=== PATIENT | male | born 1955 | race American Indian/Alaskan Native ===

== ENCOUNTER 2016-10-15 07:42 | Emergency (ER) | payer OTHER ==
[2016-10-15 09:06] LABS: Basophils % (Auto) 0.4 % (0.0-1.8); Hematocrit 45.4 % (35.5-45.6); Hemoglobin 14.2 gm/dl (11.8-15.2); Mean Corpuscular HGB Conc 31 % (32-34); Mean Corpuscular Hemoglobin 27 pg (28-32); Mean Corpuscular Volume 85 fl (84-94); Platelet Count 146 K/mm3 (140-440); Red Blood Count 5.37 M/mm3 (3.65-5.03); Red Cell Distribution Width 15.9 % (13.2-15.2); White Blood Count 7.5 K/mm3 (4.5-11.0)
[2016-10-15 09:27] LABS: Alanine Aminotransferase 15 units/L (7-56); Albumin/Globulin Ratio 1.3 %; Alkaline Phosphatase 60 units/L (35-129); Anion Gap 14 mmol/L; BUN/Creatinine Ratio 19.09; Bilirubin,Total 0.5 mg/dL (0.1-1.2); Blood Urea Nitrogen 21 mg/dL (9-20); Calcium 9.1 mg/dL (8.4-10.2); Carbon Dioxide 27 mmol/L (22-30); Chloride 101.2 mmol/L (98-107); Glucose 119 mg/dL (75-100); Lipase 28 units/L (13-60); Sodium 137 mmol/L (137-145); Total Protein 7.2 g/dL (6.3-8.2)
[2016-10-15 09:57] LABS: Bilirubin,Urine NEG (Negative); Blood,Urine MOD (Negative); Ketones,Urine NEG (Negative); Leukocyte Esterase,Urine NEG (Negative); Mucus,Urine 2+ /HPF; Nitrite,Urine NEG (Negative); Protein,Urine <15 mg/dL mg/dL (Negative); Urobilinogen,Urine < 2.0 mg/dL (<2.0)
[2016-10-15] MEDS ORDERED: MORPHINE IM ONE (10:15)
[2016-10-15] MEDS ORDERED: ZOFRAN IM ONE (10:15)
[2016-10-15] MEDS ORDERED: TORADOL IM ONE (10:16)
--- NOTE | 2016-10-15 10:21 | Emergency Department Report ---
HPI - General Chief Complaint: Abdominal Pain Time Seen by Provider: 10/15/16 10:08 - [facility] HPI: Room 5 The patient is a 60-year-old male presenting with a chief complaint of left- sided abdominal pain. The patient states that 04:00 this morning he had onset of sharp left-sided abdominal pain. Patient denies nausea vomiting or diarrhea. Patient denies dysuria or hematuria. Patient states he had difficulty urinating. Patient states she's had a similar episode same pain in the past was diagnosed with kidney stones. Patient also admits to right lower extremity pain for the past 2 weeks. Patient denies any history of trauma Location: Left abdomen, right lower extremity Duration: [see above] Quality: Pain Severity: 01/11 Modifying factors: [see above] Context: [see above] Mode of transportation: [not driving] ED Past Medical Hx - Past Medical History Previous Medical History?: Yes Hx Hypertension: Yes (x15 years) Hx Headaches / Migraines: Yes Hx Kidney Stones: Yes Additional medical history: hepititis - Surgical History Past Surgical History?: Yes Additional Surgical History: Umbilical Hernia surgery - Family History Family history: no significant - Social History Smoking Status: Never Smoker - Medications Home Medications: Home Medications Medication Instructions Recorded Confirmed Last Taken Type Ibuprofen [Motrin 800 MG tab] 800 mg PO Q8HR PRN #20 tablet 10/15/16 Unknown Rx Promethazine [Phenergan TAB] 25 mg PO Q6HR PRN #10 tab 10/15/16 Unknown Rx oxyCODONE /ACETAMINOPHEN [Percocet 1 - 2 tab PO Q6HR PRN #14 tablet 10/15/16 Unknown Rx 5/325] ED Review of Systems ROS: Stated complaint: PAIN ON LEFT SIDE/ABD Other details as noted in HPI Comment: All other systems reviewed and negative Constitutional: denies: chills, fever Eyes: denies: eye pain, eye discharge, vision change ENT: denies: ear pain, throat pain Respiratory: denies: cough, shortness of breath, wheezing Cardiovascular: denies: chest pain, palpitations Endocrine: no symptoms reported Gastrointestinal: abdominal pain. denies: nausea, vomiting, diarrhea Genitourinary: denies: urgency, dysuria, hematuria Musculoskeletal: myalgia. denies: back pain, joint swelling, arthralgia Skin: denies: rash, lesions Neurological: denies: headache, weakness, paresthesias Psychiatric: denies: anxiety, depression Hematological/Lymphatic: denies: easy bleeding, easy bruising Physical Exam - Physical Exam Vital Signs: Vital Signs 10/15/16 10/15/16 08:03 08:36 Temperature 98.1 F 98.1 F Pulse Rate 69 69 Respiratory 18 18 Rate Blood Pressure 157/102 Blood Pressure 157/102 [Right] O2 Sat by Pulse 100 100 Oximetry Physical Exam: GENERAL: The patient is well-developed well-nourished male lying on stretcher not appearing to be in acute distress. [] HEENT: Normocephalic. Atraumatic. Extraocular motions are intact. Patient has moist mucous membranes. NECK: Supple. Trachea midline CHEST/LUNGS: Clear to auscultation. There is no respiratory distress noted. HEART/CARDIOVASCULAR: Regular. There is no tachycardia. There is no gallop rub or murmur. ABDOMEN: Abdomen is soft, with mild discomfort to palpation in the left upper quadrant and left lower quadrant. Patient has normal bowel sounds. There is no abdominal distention. SKIN: There is no rash. There is no edema. There is no diaphoresis. NEURO: The patient is awake, alert, and oriented. The patient is cooperative. The patient has normal speech MUSCULOSKELETAL: There is left CVA tenderness. There is tenderness to palpation of the left calf. There is no evidence of acute injury. ED Course Vital Signs 10/15/16 10/15/16 08:03 08:36 Temperature 98.1 F 98.1 F Pulse Rate 69 69 Respiratory 18 18 Rate Blood Pressure 157/102 Blood Pressure 157/102 [Right] O2 Sat by Pulse 100 100 Oximetry ED Medical Decision Making - Lab Data Result diagrams: 10/15/16 08:53 10/15/16 08:53 Laboratory Tests 10/15/16 10/15/16 10/15/16 08:53 08:53 09:39 WBC 7.5 RBC 5.37 H Hgb 14.2 Hct 45.4 MCV 85 MCH 27 L MCHC 31 L RDW 15.9 H Plt Count 146 Lymph % (Auto) 23.9 [place] % (Auto) 9.2 H Eos % (Auto) 1.0 Baso % (Auto) 0.4 Lymph # 1.8 [place] # 0.7 Eos # 0.1 Baso # 0.0 Seg Neutrophils % 65.5 Seg Neutrophils # 4.9 Sodium 137 Potassium 5.0 Chloride 101.2 Carbon Dioxide 27 Anion Gap 14 BUN 21 H Creatinine 1.1 Estimated GFR > 60 BUN/Creatinine Ratio 19.09 Glucose 119 H Calcium 9.1 Total Bilirubin 0.5 ALT 15 Alkaline Phosphatase 60 Total Protein 7.2 Albumin 4.0 Albumin/Globulin Ratio 1.3 Lipase 28 Urine Color Yellow Urine Turbidity Clear Urine pH 6.0 Ur Specific [place] 1.024 Urine Protein <15 mg/dl Urine Glucose (UA) Neg Urine Ketones Neg Urine Blood Mod Urine Nitrite Neg Urine Bilirubin Neg Urine Urobilinogen < 2.0 Ur Leukocyte Esterase Neg Urine WBC (Auto) 1.0 Urine RBC (Auto) 41.0 U Epithel Cells (Auto) < 1.0 Urine Mucus 2+ - Radiology Data Radiology results: report reviewed (CT abdomen and pelvis, right lower extremity Doppler), image reviewed (CT abdomen and pelvis, right lower extremity Doppler) CT abdomen and pelvis (read by radiologist)-small (3 mm) calculus left UV junction with proximal hydronephrosis. Nonobstructing tiny calculus right kidney. Right lower extremity Doppler (read by technologist)-no visualized SVT/DVT - Differential Diagnosis renal colic, DVT, diverticulitis, UTI, pyelonephritis, myalgia Critical care attestation.: If time is entered above; I have spent that time in minutes in the direct care of this critically ill patient, excluding procedure time. ED Disposition Clinical Impression: Acute left flank pain, Renal colic on left side Disposition: DISCHARGED TO HOME OR SELFCARE Is pt being admited?: No Does the pt Need Aspirin: No Condition: Stable Instructions: Kidney Stones (ED), Renal Colic (ED) Additional Instructions: Return to the emergency department immediately should you develop worsening symptoms, fever, inability to tolerate food or liquid or any other concerns. Prescriptions: Ibuprofen [Motrin 800 MG tab] 800 mg PO Q8HR PRN #20 tablet PRN Reason: Pain oxyCODONE /ACETAMINOPHEN [Percocet 5/325] 1 - 2 tab PO Q6HR PRN #14 tablet PRN Reason: Pain Promethazine [Phenergan TAB] 25 mg PO Q6HR PRN #10 tab PRN Reason: Nausea Referrals: ZOE OWENS MD [Primary Care Provider] - 3-5 Days MORELIA ADLER MD [Staff Physician] - 3-5 Days (Dr. Adler is a urologist. Please follow up with him for further evaluation and management of your kidney stone) Time of Disposition: 13:09
--- NOTE | 2016-10-15 13:01 | Cat Scan Report ---
CT scan of abdomen and pelvis without IV contrast: Findings: Normal liver spleen pancreas and gallbladder. Normal adrenals. There is a 3 mm calculus identified at the left UV junction which hydronephrosis of the proximal collecting system. Perirenal stranding is also noted. 1 mm nonobstructing calculus right kidney. Normal bladder. No free intraperitoneal fluid or air. No evidence of adenopathy. Gaseous colon with stool in colon. Impression: Small calculus left UV junction with proximal hydronephrosis. Nonobstructing tiny calculus right kidney.
[2016-10-15 13:36] VITALS: BP 111/63
--- NOTE | 2016-10-15 17:13 | Vascular Lab Report ---
Right Lower Extremity Venous Duplex Study: Reason for Exam: Pain of the right lower extremity. Comments on the Right: All veins visualized are freely compressible without evidence of internal echogenicity. Flow is spontaneous and phasic throughout. No evidence of acute or chronic thrombus is seen in any of the vessels visualized. Comments on the Left: A limited duplex study was done of the proximal veins of the left lower extremity. All veins visualized are freely compressible without evidence of internal echogenicity. Flow is spontaneous and phasic throughout. No evidence of acute or chronic thrombus is seen in any of the vessels visualized. Impression: No evidence of acute or chronic deep venous thrombosis in the right lower extremity.
== END 2016-10-15 13:36 | disposition home or self-care (01) ==
LOC: ED 07:42
DX: N23 Unspecified renal colic (principal); I10 Essential (primary) hypertension; G43.909 Migraine, unspecified, not intractable, without status migrainosus
CPT/HCPCS: 36415; 74176; 80053; 81001; 83690; 85025; 93971; 96372; 99284; J1885; J2270; J2405